=== PATIENT | male | born 1990 | race Hispanic/Latino ===

== ENCOUNTER 2017-06-30 11:50 | Day surgery (SDC) | payer BC ==
[~2017-06-30] VITALS: Ht 170.2 cm; Wt 83.6 kg
[2017-06-30] MEDS ORDERED: NAPR500T PO (12:00)
[2017-06-30] MEDS ORDERED: ZYRT10CA PO (12:00)
[2017-06-30] MEDS ORDERED: ONDANSETRON 4MG/2ML VIAL (J2405) IV ONE (12:15)
[2017-06-30] MEDS ORDERED: NS 1,000 ML IV ONE (12:15)
[2017-06-30] MEDS ORDERED: MORPHINE 4 MG/ML 1ML SYRINGE IV ONE ×2 (12:15→14:00)
[2017-06-30 12:31] LABS: BASO % 0.4 % (0.0-1.0); EOS # 0.2 K/mm3 (0.0-0.50); EOS % 1.7 % (0.0-3.0); LARGE UNSTAINED CELL # 0.1 K/mm3 (0.0-0.4); LARGE UNSTAINED CELL % 0.9 % (0.0-4.0); LYMPH # 1.2 K/mm3 (1.5-6.5); LYMPH % 9.5 % (24.0-44.0); MEAN CORPUSCULAR HEMOGLOBIN 30.2 pg (27.0-33.0); MEAN CORPUSCULAR VOLUME 83.8 fl (80.0-96.0); MONO # 0.6 K/mm3 (0.0-0.8); MONO % 4.4 % (0.0-5.0); NEUTROPHILS # 10.7 K/mm3 (1.8-7.7); NEUTROPHILS % 83.2 % (36.0-66.0); PLATELET COUNT, AUTOMATED 263 k/mm3 (150-450); RED CELL DISTRIBUTION WIDTH 12.4 % (11.5-14.5); WHITE BLOOD COUNT 12.9 K/mm3 (4.0-10.0)
[2017-06-30 12:54] LABS: ALBUMIN 4.2 GM/DL (3.2-5.2); ALBUMIN/GLOBULIN RATIO 1.24 (1.00-1.93); ALKALINE PHOSPHATASE 98 U/L (45-117); ALT/SGPT 25 U/L (12-78); ANION GAP 6 MEQ/L (8-16); AST/SGOT 17 U/L (15-37); BILIRUBIN,DIRECT 0.2 MG/DL (0.0-0.2); BILIRUBIN,TOTAL 0.9 MG/DL (0.2-1.0); BLOOD UREA NITROGEN 14 MG/DL (7-18); CALCIUM LEVEL 8.9 MG/DL (8.5-10.1); CARBON DIOXIDE LEVEL 28 MEQ/L (21-32); CHLORIDE LEVEL 106 MEQ/L (98-107); CREATININE FOR GFR 0.87 MG/DL (0.70-1.30); GLOMERULAR FILTRATION RATE > 60.0 (>60); GLUCOSE, FASTING 95 MG/DL (70-105); POTASSIUM SERUM 3.9 MEQ/L (3.5-5.1); SODIUM LEVEL 140 MEQ/L (136-145); TOTAL PROTEIN 7.6 GM/DL (6.4-8.2)
[2017-06-30] MEDS ORDERED: ISOVUE-370 76% 100ML VIAL (Q9967) As Ordered ONE (13:04)
--- NOTE | 2017-06-30 13:44 | REP ---
CT ABDOMEN PELVIS WITH IV BUT WITHOUT ORAL CONTRAST: HISTORY: Right lower quadrant pain. Comparison CT study April 22, 2012. CT CONTRAST DOSE: 100 mL of intravenous Isovue 370. CT FINDINGS: Preliminary digital business dean radiograph is unremarkable. The lung bases are clear. The liver and the spleen are homogeneous in texture. The spleen is at the upper range of normal in size measuring 12.8 cm. This appears to be unchanged from the April 30, [address] study. No adrenal lesion is seen. The pancreas and gallbladder remain unremarkable. The kidneys enhance symmetrically and are morphologically intact. No retroperitoneal mass or adenopathy is seen. Small and large intestinal bowel loops are normal in the upper abdomen. There is no evidence of free intraperitoneal air or abscess. There is however evidence of acute appendicitis with mural thickening, mild enlargement, and moderate periappendiceal inflammation and fluid in the right lower quadrant lateral and inferior to the cecum. There are dystrophic calcifications in the prostate gland. Seminal vesicles and urinary bladder are unremarkable. No abdominal wall defect is seen. No bony destructive lesion is appreciated. IMPRESSION: CT findings consistent with acute appendicitis. The appendix is noted inferior lateral to the cecum in the usual position in the right lower quadrant. There is no evidence of free air or abscess. Signed by Edis Hagan MD 06/30/2017 03:53 P
[2017-06-30] MEDS ORDERED: PIPERACILLIN/TAZOBACTAM SOD 3.375 GM in D5W MINI-BAG PLUS 50 ML IV ONE (14:00)
[2017-06-30] MEDS ORDERED: LEVAINH INH (14:12)
[2017-06-30] MEDS ORDERED: LR 1,000 ML IV SCH ×2 (15:43→19:45)
[2017-06-30] MEDS ORDERED: MORPHINE 2 MG/ML 1ML SYRINGE IV PRN (15:45)
[2017-06-30] MEDS ORDERED: ACETAMINOPHEN TAB 650MG DOSE (2X325MG) PO PRN (15:45)
[2017-06-30] MEDS ORDERED: ONDANSETRON 4MG/2ML VIAL (J2405) IV PRN ×2 (15:45→19:45)
[2017-06-30] MEDS ORDERED: KETOROLAC 30 MG/ML VIAL (J1885) IV PRN (15:45)
[2017-06-30] MEDS ORDERED: LEVALBUTEROL 1.25 MG/0.5 ML CONCENTRATE NEB INH PRN (15:45)
[2017-06-30] MEDS ORDERED: MOM 30ML SUSPENSION UDC PO PRN (15:45)
[2017-06-30] MEDS ORDERED: NORCO, ANEXSIA 5/325MG TABLET (HYDROcodone/ACETAMINOPHEN) PO PRN (15:45)
[2017-06-30] MEDS ORDERED: PIPERACILLIN/TAZOBACTAM SOD 3.375 GM in D5W MINI-BAG PLUS 50 ML IV SCH ×2 (16:00→20:00)
--- NOTE | 2017-06-30 16:12 | HPE ---
DATE OF ADMISSION: 06/30/2017 CHIEF COMPLAINT: Abdominal pain. HISTORY OF PRESENT ILLNESS: The patient is a 26-year-old male who presents with right lower quadrant abdominal pain that started last evening, got progressively worse over the night, this morning he woke up thinking it was just constipation. He tried to take some laxatives and had a couple rolls without any improvement in his symptoms so he came to the emergency room for evaluation. In the ER he was afebrile and he had a slightly elevated white count and CT findings compatible with acute appendicitis. Therefore I was asked to see him. Currently his pain is controlled with some morphine. Denies any fevers or chills. A little bit of nausea this morning but no emesis. No change in bowel movements. No diarrhea or constipation. No recent trauma or travel and no recent illnesses. PAST MEDICAL HISTORY: Asthma. PAST SURGICAL HISTORY: Knee surgery. ALLERGIES: SINGULAIR. HOME MEDICATIONS: Please see medication reconciliation. REVIEW OF SYSTEMS: Pertinent positives and negatives as stated in HPI. PHYSICAL EXAMINATION: GENERAL: Patient is alert and oriented times three. No acute stress. VITAL SIGNS: Temperature 98.2, pulse 87, respirations 16, blood pressure 129/77, pulse oximetry 98% on room air. HEENT: Pupils equally round and reactive to light and accommodation. HEART: S1, S2, regular rate and rhythm. LUNGS: Clear to auscultation bilaterally. ABDOMEN: Soft. Tender to palpation right lower quadrant. No rebound, but has positive guarding in the right lower quadrant. EXTREMITIES: No clubbing, cyanosis or edema. LABORATORY DATA: White count 12.9, hemoglobin 15.7, platelets 263, sodium 140, potassium 3.9. IMAGING STUDIES: CT abdomen and pelvis shows acute appendicitis with mural thickening, mild enlargement and moderate periappendiceal inflammation and fluid in the right lower quadrant lateral and inferior to the cecum. ASSESSMENT/PLAN: The patient is a 26-year-old male with signs and symptoms consistent with acute appendicitis. RECOMMENDATIONS: Proceed with laparoscopic possible open appendectomy. Risks and benefits of procedure not limited to but including bleeding, infection, hernia formation, damage to surrounding structures, and need for further surgery was discussed in detail with the patient. Informed consent was obtained. Procedure was planned for this evening. In the meantime, he will be admitted for same day surgery to the hospital. Postoperatively, he will be kept overnight most likely, on regular diet, couple doses of IV antibiotics with plan to be discharged home first thing in the morning.
[2017-06-30 17:05] VITALS: BP 114/71
[2017-06-30] MEDS ORDERED: MIDAZOLAM INJ 2 MG/2 ML VIAL (J2250) As Ordered ONE (18:19)
[2017-06-30] MEDS ORDERED: fentaNYL 100 MCG/2 ML INJECTION (J3010) As Ordered ONE (18:19)
[2017-06-30] MEDS ORDERED: PROPOFOL 200 MG/20 ML VIAL As Ordered ONE (18:19)
[2017-06-30] MEDS ORDERED: ONDANSETRON 4MG/2ML VIAL (J2405) As Ordered ONE (18:19)
[2017-06-30] MEDS ORDERED: ROCURONIUM BROMIDE 50 MG/5 ML VIAL/SYRINGE As Ordered ONE (18:19)
[2017-06-30] MEDS ORDERED: dexameTHASONE 4 MG/ML 1ML VIAL (J1100) As Ordered ONE ×2 (18:19→18:59)
[2017-06-30] MEDS ORDERED: LIDOCAINE 2% INJ 100 MG/5 ML SDV (FOR ANES.) As Ordered ONE (18:19)
[2017-06-30] MEDS ORDERED: BUPIVACAINE/EPIN 0.25% 30 ML VIAL As Ordered ONE (18:20)
[2017-06-30] MEDS ORDERED: SUGAMMADEX SODIUM 500 MG/5 ML VIAL (BRIDION) As Ordered ONE (19:00)
[2017-06-30] MEDS ORDERED: SENN1TAB2 PO (19:09)
[2017-06-30] MEDS ORDERED: NORCOTAB PO (19:09)
[2017-06-30] MEDS ORDERED: HYDROmorphone HCL 2 MG/ML 1ML VIAL (J1170) As Ordered ONE (19:11)
[2017-06-30] MEDS ORDERED: PERCOCET 5MG/325MG TAB As Ordered ONE (19:34)
--- NOTE | 2017-06-30 19:42 | RO ---
DATE OF PROCEDURE: 06/30/2017 PREOPERATIVE DIAGNOSIS: Acute appendicitis. POSTOPERATIVE DIAGNOSIS: Acute appendicitis. PROCEDURE: Laparoscopic appendectomy. SURGEON: Dr. Santosh Montano SCREEN MAKING TECHNICIAN: None. ANESTHESIA: General. ESTIMATED BLOOD LOSS: 5 mL. COMPLICATIONS: None. INDICATIONS FOR PROCEDURE: The patient is a 26-year-old male who presents to the emergency room (ER) with right lower quadrant pain, found to have acute appendicitis on CT scan. Recommendation was to take him to the operating room (OR) for urgent laparoscopic appendectomy. Risks and benefits of procedure not limited to but including bleeding, infection, hernia formation, damage to surrounding structures, need for further surgery were discussed in detail with the patient. Informed consent was obtained and procedure was planned. DESCRIPTION OF PROCEDURE: The patient was brought back to operating room 6. After sufficient sedation, the abdomen was sterilely prepped and draped. Next, a time-out was done to confirm proper patient and proper procedure. Following that, a 5 mm incision made in the left upper quadrant, Veress needle was inserted and the abdomen was insufflated to 15 mmHg. Next, 5 mm OptiView port was used to gain access to the abdomen. Once inside, an 8 mm port was placed supraumbilically in the midline and another 5 mm port in the right lower quadrant. The omentum was pulled back, the appendix was easily identified. It was elevated up in the air. Mesoappendix was taken down using the Enseal. Once the base of the appendix was reached, it was ligated twice with PDS Endoloops and then amputated using the Enseal. Appendix was then brought out through 5 mm Endo Catch bag through the 8 mm port site. The fascia at the supraumbilical port site was then closed with a Bo-Angeles needle and #0 Vicryl suture. The abdomen was then cleaned and dried. Steri-Strips, 4 x 4 and tape were applied, thus ending procedure.
[2017-06-30] MEDS ORDERED: HYDROmorphone HCL 1 MG/ML SYRINGE (J1170) IV PRN (19:45)
[2017-06-30] MEDS ORDERED: PERCOCET 5MG/325MG TAB PO PRN (19:45)
[2017-06-30] MEDS ORDERED: fentaNYL 100 MCG/2 ML INJECTION (J3010) IV PRN (19:45)
[2017-06-30 20:00] VITALS: BP 139/72
[2017-06-30 20:30] VITALS: BP 124/66
[2017-06-30] MEDS ORDERED: SENOKOT S TAB PO SCH (21:00)
[2017-06-30 21:30] VITALS: BP 124/62
[2017-06-30 22:30] VITALS: BP 128/85
[2017-07-01] MEDS ORDERED: CETIRIZINE (ZyrTEC) 10 MG TAB PO SCH (09:00)
== END 2017-06-30 22:30 | disposition home or self-care (01) ==
LOC: M ED 11:50 → M SDC 15:10 → M PED 17:06 → M SDC 22:30
PROVIDERS: ATTEND Surgery
DX: K35.89 Other acute appendicitis (principal); J45.909 Unspecified asthma, uncomplicated; Z88.8 Allergy status to other drugs, medicaments and biological substances
CPT/HCPCS: 44970; 74177; 80048; 80076; 83690; 85025; 88304; 96365; 96366; 96375; 96376; 99284; J1100; J1170; J1885; J2250; J2405; J2543; J3010; Q9967

== ENCOUNTER → 2017-12-16 | Outpatient (REF) | payer BC | LOC: M LAB REF 17:01 | DX: J02.9 Acute pharyngitis, unspecified (principal) | CPT/HCPCS: 87070 ==

== ENCOUNTER → 2018-07-26 | Outpatient (REF) | payer BC ==
[2018-07-26 12:23] LABS: INFLUENZA A AMPLIFICATION NEGATIVE (NEGATIVE); INFLUENZA B AMPLIFICATION NEGATIVE (NEGATIVE)
== END ==
LOC: M LAB REF 11:25
DX: J11.1 Influenza due to unidentified influenza virus with other respiratory manifestations (principal)
CPT/HCPCS: 87070

== ENCOUNTER → 2018-12-23 | Outpatient (REF) | payer BC ==
[~2018-12-23] MED LIST: LEVAINH INH; NAPR-50 PO; NORCOTAB PO; SENN1TAB2 PO; ZYRT10CA PO
[2018-12-23 20:20] LABS: CHLAMYDIA DNA AMPLIFICATION NEGATIVE (NEGATIVE); GC DNA AMPLIFICATION NEGATIVE (NEGATIVE)
== END ==
LOC: M LAB REF 17:16
PROVIDERS: ATTEND Physician Assistant
DX: R39.198 Other difficulties with micturition (principal); R50.9 Fever, unspecified; R51 Headache

== ENCOUNTER 2019-04-29 04:40 | Emergency (ER) | payer BC ==
[~2019-04-29] VITALS: Ht 170.2 cm; Wt 86.4 kg
[~2019-04-29 04:40] MED LIST changes: +HYDR-3715 PO; -NAPR-50 PO; +NAPR-837 PO; -NORCOTAB PO; -SENN1TAB2 PO; +SENN1TAB40 PO
[2019-04-29] MEDS ORDERED: ONDANSETRON 4MG/2ML VIAL (J2405) IV ONE ×2 (05:30→07:30)
[2019-04-29] MEDS ORDERED: NS 1,000 ML IV ONE (05:30)
[2019-04-29] MEDS ORDERED: MORPHINE 4 MG/ML 1ML VIAL/SYRINGE (J2270) IV ONE (05:30)
[2019-04-29 05:36] LABS: BASO # 0.1 10^3/uL (0.0-0.2); BASO % 0.4 % (0.0-1.0); EOS # 0.2 10^3/uL (0.0-0.50); EOS % 1.1 % (0.0-3.0); HEMATOCRIT 47.3 % (42.0-52.0); HEMOGLOBIN 16.3 g/dl (13.5-17.5); LYMPH # 1.7 10^3/uL (1.5-6.5); MEAN CORPUSCULAR HEMOGLOBIN 28.6 pg (27.0-33.0); MEAN CORPUSCULAR HGB CONC 34.5 g/dl (32.0-36.5); MONO # 0.5 10^3/uL (0.0-0.8); MONO % 3.9 % (0.0-5.0); NEUTROPHILS # 10.8 10^3/uL (1.8-7.7); NEUTROPHILS % 80.9 % (36.0-66.0); PLATELET COUNT, AUTOMATED 222 10^3/uL (150-450); WHITE BLOOD COUNT 13.4 10^3/uL (4.0-10.0)
[2019-04-29 06:13] LABS: ALBUMIN 4.2 GM/DL (3.2-5.2); ALT/SGPT 26 U/L (12-78); BILIRUBIN,DIRECT < 0.1 MG/DL (0.0-0.2); BILIRUBIN,TOTAL 0.4 MG/DL (0.2-1.0); BLOOD UREA NITROGEN 16 MG/DL (7-18); CALCIUM LEVEL 9.5 MG/DL (8.5-10.1); CARBON DIOXIDE LEVEL 28 MEQ/L (21-32); CHLORIDE LEVEL 105 MEQ/L (98-107); CREATININE FOR GFR 1.25 MG/DL (0.70-1.30); GLOMERULAR FILTRATION RATE > 60.0 (>60); GLUCOSE, FASTING 108 MG/DL (70-100); LIPASE 67 U/L (73-393); POTASSIUM SERUM 3.7 MEQ/L (3.5-5.1); SODIUM LEVEL 141 MEQ/L (136-145); TOTAL PROTEIN 8.1 GM/DL (6.4-8.2)
[2019-04-29] MEDS ORDERED: KETOROLAC 30 MG/ML VIAL (J1885) IV ONE (07:00)
[2019-04-29] MEDS ORDERED: ISOVUE-370 76% 100ML VIAL (Q9967) As Ordered ONE (07:22)
[2019-04-29] MEDS: GASTROGRAFIN SOLUTION 30ML PO SCH ×2 (07:29→08:30)
[2019-04-29] MEDS ORDERED: SUCR1SS PO (10:03)
[2019-04-29] MEDS ORDERED: PEPC1TAB5 PO (10:03)
[2019-04-29 10:33] VITALS: BP 113/60
--- NOTE | 2019-04-29 10:50 | REP ---
CT ABDOMEN AND PELVIS WITH ORAL AND IV CONTRAST: CT TECHNIQUE: Axial contrast enhanced images from the lung bases to the pubic symphysis using 100 mL Isovue 370 intravenous contrast material with multiplanar reformations. Visualized lung bases are clear. Liver, spleen, adrenals, pancreas and kidneys are normal in appearance. There is no hydronephrosis. The gallbladder is grossly unremarkable. There is no abdominal aortic aneurysm. There is no adenopathy. There is no free air or free fluid. No bowel thickening is seen. No pelvic mass is seen. Urinary bladder appears unremarkable. There is a small umbilical hernia containing fat. IMPRESSION: No acute abnormalities detected. Electronically Signed by Santosh Mcfarlane MD 05/01/2019 07:21 P
== END 2019-04-29 11:01 | disposition home or self-care (01) ==
LOC: M ED 04:40
DX: R11.2 Nausea with vomiting, unspecified (principal); R10.12 Left upper quadrant pain; J45.909 Unspecified asthma, uncomplicated; Z79.899 Other long term (current) drug therapy; Z88.0 Allergy status to penicillin; Z88.8 Allergy status to other drugs, medicaments and biological substances
CPT/HCPCS: 74177; 80048; 80076; 83690; 85025; 96361; 96374; 96375; 96376; 99284; J1885; J2270; J2405; Q9963; Q9967

== ENCOUNTER 2019-08-21 22:07 | Emergency (ER) | payer BC ==
[~2019-08-21] VITALS: Ht 170.2 cm; Wt 86.4 kg
[~2019-08-21 22:07] MED LIST changes: +PEPC1TAB5 PO; +SENN-53 PO; -SENN1TAB40 PO; +SUCR1SS PO
[2019-08-21] MEDS ORDERED: CYCL10TA (22:13)
[2019-08-21] MEDS ORDERED: FLUT1BLS5 (22:13)
[2019-08-21] MEDS ORDERED: FAMO1TAB11 (22:13)
[2019-08-21] MEDS ORDERED: NAPR-885 (22:13)
[2019-08-21] MEDS ORDERED: ALBU8.5H (22:13)
[2019-08-21] MEDS ORDERED: KETOROLAC 30 MG/ML VIAL (J1885) IV ONE (22:45)
[2019-08-21] MEDS ORDERED: SUCRALFATE 1 GM TAB PO ONE (22:45)
[2019-08-21] MEDS ORDERED: GI COCKTAIL 50ML BTL(HYOSCYAMINE/MAALOX/LIDOCAINE VISCOUS)(1:3:1) PO ONE (22:45)
[2019-08-21] MEDS ORDERED: PANTOPRAZOLE 40MG INJ (PROTONIX) (C9113) IV ONE (22:45)
[2019-08-21 22:52] LABS: BASO # 0.1 10^3/uL (0.0-0.2); BASO % 1.2 % (0.0-1.0); EOS # 0.2 10^3/uL (0.0-0.5); EOS % 2.7 % (0.0-3.0); HEMATOCRIT 45.4 % (42.0-52.0); HEMOGLOBIN 15.3 g/dl (13.5-17.5); LYMPH # 2.6 10^3/uL (1.5-5.0); LYMPH % 35.1 % (24.0-44.0); MEAN CORPUSCULAR HEMOGLOBIN 28.2 pg (27.0-33.0); MEAN CORPUSCULAR HGB CONC 33.7 g/dl (32.0-36.5); MEAN CORPUSCULAR VOLUME 83.6 fl (80.0-96.0); MONO # 0.5 10^3/uL (0.0-0.8); NEUTROPHILS # 4.1 10^3/uL (1.5-8.5); NEUTROPHILS % 54.9 % (36.0-66.0); PLATELET COUNT, AUTOMATED 267 10^3/uL (150-450); RED BLOOD COUNT 5.43 10^6/uL (4.30-6.10); WHITE BLOOD COUNT 7.5 10^3/uL (4.0-10.0)
[2019-08-21 23:19] LABS: ALBUMIN 4.1 GM/DL (3.2-5.2); ALT/SGPT 30 U/L (12-78); BILIRUBIN,DIRECT < 0.1 MG/DL (0.0-0.2); BILIRUBIN,TOTAL 0.4 MG/DL (0.2-1.0); BLOOD UREA NITROGEN 15 MG/DL (7-18); CALCIUM LEVEL 9.1 MG/DL (8.5-10.1); CARBON DIOXIDE LEVEL 30 MEQ/L (21-32); CHLORIDE LEVEL 103 MEQ/L (98-107); CREATININE FOR GFR 1.17 MG/DL (0.70-1.30); GLOMERULAR FILTRATION RATE > 60.0 (>60); GLUCOSE, FASTING 116 MG/DL (70-100); LIPASE 72 U/L (73-393); POTASSIUM SERUM 3.8 MEQ/L (3.5-5.1); SODIUM LEVEL 139 MEQ/L (136-145); TOTAL PROTEIN 7.5 GM/DL (6.4-8.2)
[2019-08-22] MEDS ORDERED: ONDANSETRON 4MG/2ML VIAL (J2405) IV ONE
[2019-08-22] MEDS ORDERED: diphenhydrAMINE INJ 50MG/ML VIAL (J1200) IV ONE (00:45)
[2019-08-22] MEDS ORDERED: DICYCLOMINE 10 MG CAP PO ONE (00:45)
[2019-08-22] MEDS ORDERED: METOCLOPRAMIDE INJ 10MG/2ML VIAL (J2765) IV ONE (00:45)
[2019-08-22] MEDS: GASTROGRAFIN SOLUTION 30ML PO SCH ×2 (02:12→02:53)
[2019-08-22] MEDS ORDERED: HALOPERIDOL 5 MG/ML VIAL (J1630) IV STA (03:09)
[2019-08-22] MEDS ORDERED: diphenhydrAMINE INJ 50MG/ML VIAL (J1200) IV STA (03:09)
[2019-08-22] MEDS ORDERED: ISOVUE-370 76% 100ML VIAL (Q9967) As Ordered ONE (03:28)
--- NOTE | 2019-08-22 05:04 | REPVR ---
PROCEDURE INFORMATION: Exam: CT Abdomen And Pelvis With Contrast Exam date and time: 08/22/2019 4:09 AM Clinical history: 28 years old, male; Abdominal pain; Localized; Upper; Additional info: Upper abd pain TECHNIQUE: Imaging protocol: Computed tomography of the abdomen and pelvis with intravenous contrast. Radiation optimization: All CT scans at this facility use at least one of these dose optimization techniques: automated exposure control; mA and/or kV adjustment per patient size (includes targeted exams where dose is matched to clinical indication); or iterative reconstruction. Contrast material: ISOVUE 370; Contrast volume: 100 ml; Contrast route: IV; COMPARISON: CT ABD/PEL W/IV ORAL CONTRAS 04/29/2019 8:50 AM FINDINGS: Lungs: Bibasilar atelectasis. Mediastinum: Small hiatal hernia. Liver: Liver is enlarged with mild diffuse fatty infiltration. Gallbladder and bile ducts: Minimal calcification in the wall of the distended gallbladder similar to previous study. No ductal dilatation. No pericholecystic fluid. If clinically concerned further evaluation with ultrasound is recommended. Pancreas: Normal. No ductal dilation. Spleen: Spleen is upper limit of normal measuring 13 cm. Adrenals: Normal. No mass. Kidneys and ureters: Normal. No hydronephrosis. Stomach and bowel: Diverticulosis of the colon. No bowel dilatation or obstruction. Nondistention versus minimal thickening of the proximal sigmoid colon. Mild prominent fluid-filled distal small bowel loops may represent mild enteritis. No obstruction. Appendix: Appendix not seen. No evidence of appendicitis. Intraperitoneal space: Unremarkable. No free air. No significant fluid collection. Vasculature: Unremarkable. No abdominal aortic aneurysm. Lymph nodes: Unremarkable. No enlarged lymph nodes. Bladder: Unremarkable as visualized. Reproductive: Prostate calcifications. Bones/joints: Unremarkable. No acute fracture. Soft tissues: Small fat containing umbilical hernia. IMPRESSION: Minimal calcification in the wall of the distended gallbladder similar to previous study. No ductal dilatation. No pericholecystic fluid. If clinically concerned further evaluation with ultrasound is recommended. Diverticulosis of the colon. No bowel dilatation or obstruction. Nondistention versus minimal thickening of the proximal sigmoid colon. Mild prominent fluid-filled distal small bowel loops may represent mild enteritis. No obstruction. Electronically signed by: Rachelle Harrell On 08/22/2019 05:03:43 AM
[2019-08-22] MEDS ORDERED: REGL10TA6 PO (05:11)
[2019-08-22 05:30] VITALS: BP 138/74
--- NOTE | 2019-08-22 06:48 | REP ---
Clinical: Upper abdominal pain. Technique: Two views of the abdomen and pelvis. Findings: Bowel gas pattern is nonspecific. No organomegaly. No abnormal calcifications. Skeletal structures are intact. Impression: Nonspecific bowel gas pattern. Electronically Signed by Sandip Rosario MD 08/22/2019 06:39 A
--- NOTE | 2019-08-22 07:10 | ED PDOC ---
Post-Departure Follow-Up radiology report faxed to Rosanna Barrera Sarah MD Aug 22, 2019 07:10
== END 2019-08-22 05:31 | disposition home or self-care (01) ==
LOC: M ED 22:07
DX: K52.9 Noninfective gastroenteritis and colitis, unspecified (principal); J45.909 Unspecified asthma, uncomplicated; Z79.899 Other long term (current) drug therapy; Z88.0 Allergy status to penicillin; Z88.8 Allergy status to other drugs, medicaments and biological substances
CPT/HCPCS: 74019; 74177; 80048; 80076; 81001; 83690; 85025; 96374; 96375; 96376; 99284; C9113; J1200; J1630; J1885; J2405; J2765; Q9963; Q9967

== ENCOUNTER → 2019-08-27 | Outpatient (REF) | payer BC ==
[~2019-08-27] MED LIST changes: +ALBU8.5H; +CYCL10TA; +FAMO1TAB11; +FLUT1BLS5; +NAPR-885; +REGL10TA6 PO
== END ==
LOC: M LAB REF 12:49
PROVIDERS: ATTEND Nurse Practitioner Family
DX: J02.9 Acute pharyngitis, unspecified (principal)

== ENCOUNTER → 2019-12-06 | Outpatient (REF) | payer BC ==
[2019-12-06 11:56] LABS: INFLUENZA A AMPLIFICATION POSITIVE (NEGATIVE); INFLUENZA B AMPLIFICATION NEGATIVE (NEGATIVE)
== END ==
LOC: M LAB REF 11:10
PROVIDERS: ATTEND Physician Assistant Medical
DX: J11.1 Influenza due to unidentified influenza virus with other respiratory manifestations (principal)

== ENCOUNTER → 2019-12-26 | Outpatient (REF) | payer BC ==
[2019-12-26 15:18] LABS: INFLUENZA A AMPLIFICATION NEGATIVE (NEGATIVE); INFLUENZA B AMPLIFICATION NEGATIVE (NEGATIVE)
== END ==
LOC: M LAB REF 13:54
PROVIDERS: ATTEND Physician Assistant Medical
DX: J02.9 Acute pharyngitis, unspecified (principal)

== ENCOUNTER → 2020-03-08 | Outpatient (REF) | payer BC ==
[~2020-03-08] MED LIST changes: +CYCL-707; -CYCL10TA
== END ==
LOC: M LAB REF 18:41
PROVIDERS: ATTEND Physician Assistant
DX: J02.9 Acute pharyngitis, unspecified (principal)

== ENCOUNTER → 2020-04-09 | Outpatient (REF) | payer BC ==
[2020-04-09 12:45] LABS: APPEARANCE, URINE CLOUDY (CLEAR); BACTERIA, URINE AUTO 3+ (NEGATIVE); BILIRUBIN, URINE AUTO NEGATIVE (NEGATIVE); BLOOD, URINE BLOOD 3+ (NEGATIVE); COLOR, URINE AMBER (YELLOW); GLUCOSE, URINE (UA) AUTO NEGATIVE (NEGATIVE); KETONE, URINE AUTO NEGATIVE (NEGATIVE); LEUKOCYTE ESTERASE, URINE AUTO 3+ (NEGATIVE); MUCUS, URINE MODERATE (NEGATIVE); NITRITE, URINE AUTO POSITIVE (NEGATIVE); PROTEIN, URINE AUTO 2+ mg/dL (NEGATIVE); RBC, URINE AUTO 91 /HPF (0-3); SPECIFIC GRAVITY URINE AUTO 1.027 (1.002-1.035); SQUAMOUS EPITHELIAL CELL UR AU 0 /HPF (0-6); TRANSITIONAL EPITHELIAL AUTO 2 /HPF; WBC, URINE AUTO TNTC /HPF (0-3)
[2020-04-09 14:05] LABS: CHLAMYDIA DNA AMPLIFICATION NEGATIVE (NEGATIVE); GC DNA AMPLIFICATION NEGATIVE (NEGATIVE)
== END ==
LOC: M LAB REF 12:24
PROVIDERS: ATTEND Physician Assistant Medical
DX: Z11.3 Encounter for screening for infections with a predominantly sexual mode of transmission (principal)

== ENCOUNTER → 2021-02-22 | Outpatient (CLI) | payer BC ==
[2021-02-22 10:56] LABS: ALBUMIN 4.3 GM/DL (3.2-5.2); ALT/SGPT 36 U/L (12-78); BLOOD UREA NITROGEN 18 MG/DL (7-18); CALCIUM LEVEL 9.5 MG/DL (8.5-10.1); CARBON DIOXIDE LEVEL 29 MEQ/L (21-32); CHLORIDE LEVEL 106 MEQ/L (98-107); CHOLESTEROL LEVEL 215 MG/DL (<200); CHOLESTEROL RISK RATIO 5.972 (<5); CREATININE FOR GFR 1.08 MG/DL (0.70-1.30); GLOMERULAR FILTRATION RATE > 60.0 (>60); GLUCOSE, FASTING 82 MG/DL (70-100); HDL CHOLESTEROL 36 MG/DL (>40); LDL CHOLESTEROL 137 MG/DL (<100); NON-HDL-C 179 MG/DL; POTASSIUM SERUM 3.9 MEQ/L (3.5-5.1); SODIUM LEVEL 139 MEQ/L (136-145); TOTAL PROTEIN 8.2 GM/DL (6.4-8.2); TRIGLYCERIDES LEVEL 210 MG/DL (<150)
[2021-02-22 11:05] LABS: TOTAL 25(OH) VITAMIN D 8.5 NG/ML (30.0-100.0); VITAMIN B12 LEVEL 486 PG/ML
[2021-02-22 11:06] LABS: FOLATE 7.2 NG/ML
== END ==
LOC: M LAB 09:21
PROVIDERS: ATTEND Nurse Practitioner Family
DX: Z00.00 Encounter for general adult medical examination without abnormal findings (principal); K21.9 Gastro-esophageal reflux disease without esophagitis; E55.9 Vitamin D deficiency, unspecified

== ENCOUNTER → 2021-10-01 | Outpatient (CLI) | payer BC ==
[2021-10-01 08:46] LABS: ALBUMIN 3.9 GM/DL (3.2-5.2); ALT/SGPT 51 U/L (12-78); AMYLASE 43 U/L (25-115); BILIRUBIN,TOTAL 0.4 MG/DL (0.2-1.0); BLOOD UREA NITROGEN 19 MG/DL (7-18); CALCIUM LEVEL 9.1 MG/DL (8.5-10.1); CARBON DIOXIDE LEVEL 27 MEQ/L (21-32); CHLORIDE LEVEL 108 MEQ/L (98-107); CREATININE FOR GFR 1.16 MG/DL (0.70-1.30); GLOMERULAR FILTRATION RATE > 60.0 (>60); GLUCOSE, FASTING 114 MG/DL (70-100); LIPASE 71 U/L (73-393); POTASSIUM SERUM 3.6 MEQ/L (3.5-5.1); SODIUM LEVEL 141 MEQ/L (136-145); TOTAL PROTEIN 7.3 GM/DL (6.4-8.2)
== END ==
LOC: M LAB 07:41
PROVIDERS: ATTEND Internal Medicine Gastroenterology
DX: R10.11 Right upper quadrant pain (principal)